=== PATIENT | male | born 1985 | race Caucasian/White ===

== ENCOUNTER 2021-01-26 17:02 | Inpatient (IN) ==
[2021-01-26] MEDS ORDERED: 0.9 % Sodium Chloride 1,000 ML IVC ONE ×2 (17:28→21:29)
[2021-01-26 17:40] LABS: Basophils # 0.1 K/mcL (0.0-0.2); Basophils % 0.6 %; Eosinophils % 0.4 %; Hematocrit 40.6 % (37.5-50.1); Immature Granulocytes % 0.6 % (0-4); Lymphocytes # 1.6 K/mcL (0.6-4.6); Lymphocytes % 14.9 %; Mean Corpuscular HGB Conc 34.5 g/dL (31.6-35.5); Mean Corpuscular Volume 89.8 fL (83.0-100.0); Mean Platelet Volume 9.2 fL (9.4-12.4); Monocytes # 0.6 K/mcL (0.0-1.3); Monocytes % 5.8 %; Neutrophils # 8.4 K/mcL (1.6-8.9); Platelet Count 304 K/mcL (140-400); Red Blood Count 4.52 M/mcL (4.19-5.50); Segmented Neutrophils % 77.7 %; White Blood Count 10.8 K/mcL (4.3-11.1)
[2021-01-26 18:00] LABS: Acetaminophen < 10 mcg/mL (10-20); BUN/Creatinine Ratio 6 (6-26); Blood Urea Nitrogen 5 mg/dL (6-20); Calcium 9.8 mg/dL (8.6-10.3); Carbon Dioxide 29 mEq/L (23-29); Chloride 101 mEq/L (98-107); Chol/HDL Ratio 7.9 (0-4.9); Cholesterol 269 mg/dL (< 200); Ethanol < 10 mg/dL (Less than 10); Glucose 167 mg/dL (70-105); HDL Cholesterol 34 mg/dL (40-59); Osmolality,Calculated 285 (280-300); Potassium 3.5 mEq/L (3.5-5.1); Salicylate < 2.5 mg/dL (15.0-30.0); Sodium 137 mEq/L (136-145); Triglycerides 702 mg/dL (< 150); eGFR For African Americans > 60 (> 60); eGFR For Non-African Americans > 60 (> 60)
[2021-01-26 18:18] LABS: Bilirubin,Urine Negative (Negative); Blood,Urine Negative (Negative); Clarity,Urine Clear (Clear); Color,Urine Colorless (Yellow); Glucose,Urine (UA) 300 mg/dL (Normal); Ketones,Urine Negative (Negative); Leukocyte Esterase,Urine Negative (Negative); Nitrite,Urine Negative (Negative); Protein,Urine Trace mg/dL (Neg-Trace); Specific Gravity,Urine 1.011 (1.010-1.025); Urobilinogen,Urine Normal (Normal); WBC,Urine 0-3 per hpf (0-3)
[2021-01-26 18:24] LABS: Amphetamine Screen,Urine Negative ng/mL (Cutoff=1000); Barbiturate Screen,Urine Negative ng/mL (Cutoff=200); Benzodiazepines Screen,Urine Negative ng/mL (Cutoff=200); Cannabinoid Screen,Urine Negative ng/mL (Cutoff = 50); Cocaine Screen,Urine Negative ng/mL (Cutoff= 300); Opiate Screen,Urine Positive ng/mL (Cutoff=300); Phencyclidine Screen,Urine Positive ng/mL (Cutoff=25)
[2021-01-27] MEDS ORDERED: *HR* Labetalol 20 MG/4 ML SYRINGE IVP ONE (00:13)
[2021-01-27] MEDS ORDERED: *HR* LORazepam 2 MG/ML VIAL IM ONE (00:23)
[2021-01-27 00:50] LABS: Estimated Average Glucose 131 mg/dl; Hemoglobin A1C 6.2 %
[2021-01-27] MEDS ORDERED: haloperidoL 5 MG TABLET PO PRN (01:05)
[2021-01-27] MEDS ORDERED: *HR* LORazepam 2 MG/ML VIAL IM PRN (01:05)
[2021-01-27] MEDS ORDERED: *HR* LORazepam 1 MG TABLET PO PRN (01:05)
[2021-01-27] MEDS ORDERED: Haloperidol Lactate 5 MG/ML VIAL IM PRN (01:05)
[2021-01-27] MEDS ORDERED: *HR* LORazepam 2 MG/ML VIAL IM STA (01:31)
[2021-01-27] MEDS: hydrOXYzine pamoate 25 MG CAPSULE PO PRN ×2 (03:02→20:09)
[2021-01-27] MEDS: Acetaminophen 325 MG TABLET PO PRN (03:02)
[2021-01-27] MEDS: cloNIDine HCL 0.1 MG TABLET PO PRN ×2 (03:02→20:09)
[2021-01-27] MEDS: traZODone 50 MG TABLET PO PRN ×2 (03:02→20:09)
[2021-01-27] MEDS: Nicotine 21 MG PATCH.TD24 TD SCH (14:02)
[2021-01-27 15:12] LABS: Alanine Aminotransferase 50 Units/L (7-52); Albumin 4.4 g/dL (3.5-5.7); Albumin/Globulin Ratio 2.4 (1.1-2.2); Alkaline Phosphatase 51 Units/L (34-104); Aspartate Amino Transferase 41 Units/L (13-39); BUN/Creatinine Ratio 10 (6-26); Bilirubin,Total 0.4 mg/dL (0.3-1.0); Blood Urea Nitrogen 8 mg/dL (6-20); Calcium 9.1 mg/dL (8.6-10.3); Carbon Dioxide 34 mEq/L (23-29); Chloride 107 mEq/L (98-107); Chol/HDL Ratio 8.4 (0-4.9); Cholesterol 226 mg/dL (< 200); Globulin 1.8 g/dL (2.4-3.5); Glucose 114 mg/dL (70-105); HDL Cholesterol 27 mg/dL (40-59); Osmolality,Calculated 295 (280-300); Potassium 3.4 mEq/L (3.5-5.1); Sodium 143 mEq/L (136-145); Total Protein 6.2 g/dL (6.4-8.9); Triglycerides 500 mg/dL (< 150); eGFR For African Americans > 60 (> 60); eGFR For Non-African Americans > 60 (> 60)
[2021-01-27 15:54] LABS: Estimated Average Glucose 128 mg/dl; Hemoglobin A1C 6.1 %
[2021-01-28] MEDS: Nicotine 21 MG PATCH.TD24 TD SCH (09:28)
[2021-01-28] MEDS: cloNIDine HCL 0.1 MG TABLET PO PRN (09:30)
[2021-01-28] MEDS: traZODone 50 MG TABLET PO PRN (21:07)
[2021-01-28] MEDS: hydrOXYzine pamoate 25 MG CAPSULE PO PRN (21:07)
[2021-01-29] MEDS: Acetaminophen 325 MG TABLET PO PRN (09:05)
[2021-01-29] MEDS: Nicotine 21 MG PATCH.TD24 TD SCH (09:07)
[2021-01-29] MEDS: traZODone 50 MG TABLET PO PRN (20:10)
[2021-01-30] MEDS: Nicotine 21 MG PATCH.TD24 TD SCH (08:59)
[2021-01-30] MEDS: hydrOXYzine pamoate 25 MG CAPSULE PO PRN ×2 (17:12→21:30)
[2021-01-30] MEDS: Acetaminophen 325 MG TABLET PO PRN (17:12)
[2021-01-30] MEDS: cloNIDine HCL 0.1 MG TABLET PO PRN (21:30)
[2021-01-30] MEDS: traZODone 50 MG TABLET PO PRN (21:30)
[2021-01-31] MEDS: Acetaminophen 325 MG TABLET PO PRN (06:50)
[2021-01-31] MEDS: Nicotine 21 MG PATCH.TD24 TD SCH (09:24)
[2021-01-31 10:16] VITALS: BP 196/109
== END 2021-01-31 12:30 | disposition home or self-care (01) | DRG 918 ==
LOC: EMEROOARM 17:02 → 1ANU 01-27 01:02
PROVIDERS: ADMIT Psychiatry & Neurology Psychiatry; ATTEND Psychiatry & Neurology Psychiatry